=== PATIENT | female | born 1945 | race Two or more races ===

== ENCOUNTER 2018-08-28 17:50 | Inpatient (IN) | payer OTHER ==
[2018-08-28] MEDS ORDERED: FORTAMET1000 MG (18:35)
[2018-08-28] MEDS ORDERED: TRICOR145 MG (18:35)
[2018-08-28] MEDS ORDERED: GLIMEPIRIDE4 MG (18:36)
[2018-08-28] MEDS ORDERED: VASOTEC5 MG (18:36)
[2018-08-28] MEDS ORDERED: ULTRAM50 MG (18:36)
[2018-08-28] MEDS ORDERED: PNEU16DI2 (18:37)
[2018-08-28] MEDS ORDERED: SYNTHROID50 MCG (18:37)
[2018-08-28] MEDS ORDERED: PROTONIX40 MG (18:37)
[2018-08-31] MEDS ORDERED: CLONAZEPAM0.5 M1 PO (11:36)
[2018-08-31] MEDS ORDERED: PERCOCET 5-3251 EACH PO (11:36)
[2018-08-31] MEDS ORDERED: NEURONTIN800 MG PO (11:36)
[2018-08-31] MEDS ORDERED: COLACE100 MG PO (11:36)
[2018-08-31] MEDS ORDERED: AMOX-CLAV 875-1 EACH PO (11:36)
== END 2018-09-01 18:07 | DRG 455 ==
LOC: SURH 08-31 04:10 → O/R 08-31 04:10 → EDBD 08-31 04:10 → SURH 08-31 07:00 → CIR.AMB 08-31 17:49 → EDSTATUS 08-31 18:37 → SURH 08-31 18:41
PROVIDERS: ADMIT Orthopaedic Surgery Orthopaedic Surgery of the Spine
PROC: 0SG0071 Fusion of Lumbar Vertebral Joint with Autologous Tissue Substitute, Posterior Approach, Posterior Column, Open Approach (ICD-10-PCS; 2018-08-31)
PROC: 0SG00AJ Fusion of Lumbar Vertebral Joint with Interbody Fusion Device, Posterior Approach, Anterior Column, Open Approach (ICD-10-PCS; 2018-08-31)
PROC: 0ST20ZZ Resection of Lumbar Vertebral Disc, Open Approach (ICD-10-PCS; 2018-08-31)
PROC: 07DS3ZZ Extraction of Vertebral Bone Marrow, Percutaneous Approach (ICD-10-PCS; 2018-08-31)
PROC: 4A12X4Z Monitoring of Cardiac Electrical Activity, External Approach (ICD-10-PCS; 2018-08-31)
PROC: 0SG00A0 Fusion of Lumbar Vertebral Joint with Interbody Fusion Device, Anterior Approach, Anterior Column, Open Approach (ICD-10-PCS; principal; 2018-08-31 07:00)
DX: M43.16 Spondylolisthesis, lumbar region (principal); M48.062 Spinal stenosis, lumbar region with neurogenic claudication; M51.16 Intervertebral disc disorders with radiculopathy, lumbar region; E11.9 Type 2 diabetes mellitus without complications; I10 Essential (primary) hypertension; E03.8 Other specified hypothyroidism